=== PATIENT | female | born 1955 | race Caucasian/White ===

== ENCOUNTER → 2018-03-02 | Outpatient (CLI) | payer BC | LOC: M WHC 13:05 | DX: Z12.31 Encounter for screening mammogram for malignant neoplasm of breast (principal) | CPT/HCPCS: 77067 ==

== ENCOUNTER → 2018-11-28 | Outpatient (REF) | payer BC | LOC: M LAB LCGH 13:06 | PROVIDERS: ATTEND Physician Assistant | DX: D48.5 Neoplasm of uncertain behavior of skin (principal) ==

== ENCOUNTER → 2019-04-10 | Outpatient (CLI) | payer BC ==
--- NOTE | 2019-04-10 11:42 | REPMRS ---
Patient History The patient states she has not had a clinical breast exam in over a year. Patient is postmenopausal. No known family history of cancer. No Hormone Replacement Therapy 3D TOMOSYNTHESIS WAS PERFORMED. [facility] lifetime risk for breast cancer is 6.8%. Digital Woman Screen Mammo: April 10, 2019 - Exam #: [id number] Bilateral CC and MLO view(s) were taken. Technologist: Nathalie Bhat, Technologist Prior study comparison: March 02, 2018, bilateral digital woman screen mammo performed at [facility], [place]. March 01, 2017, digital woman screen mammo performed at [facility]. FINDINGS: The breast tissue is heterogeneously dense. This may lower the sensitivity of mammography. There has been no change in the appearance of the mammogram from the prior studies. There is a moderate amount of residual fibroglandular tissue which is fairly symmetric. There is no interval development of dominant mass, areas of architectural distortion, or clustered microcalcification typical of malignancy. Assessment: BI-RADS/ACR category 1 mammogram. Negative Mammogram. Recommendation Routine screening mammogram in 1 year (for women over age 40). This mammogram was interpreted with the aid of an FDA-approved computer-aided dectection system. Electronically Signed By: Srinivas Hernandez MD 04/10/19 [id number]
== END ==
LOC: M WHC 10:09
PROVIDERS: ATTEND Nurse Practitioner Women's Health
DX: Z12.31 Encounter for screening mammogram for malignant neoplasm of breast (principal)

== ENCOUNTER → 2020-04-14 | Outpatient (CLI) | payer BC ==
--- NOTE | 2020-04-14 14:09 | REPMRS ---
Patient History The patient states she had a clinical breast exam in 04/19. No known family history of cancer. No Hormone Replacement Therapy Digital Woman Screen Mammo: April 14, 2020 - Exam #: [id number] Bilateral CC and MLO view(s) were taken. Technologist: Jennifer Guerra, Technologist Prior study comparison: April 10, 2019, bilateral digital woman screen mammo performed at [facility]. March 02, 2018, bilateral digital woman screen mammo performed at [facility]. March 01, 2017, digital woman screen mammo performed at [facility]. FINDINGS: There are scattered fibroglandular densities. The Volpara volumetric breast density category is:B. There has been no change in the appearance of the mammogram from the prior studies. There is a mild amount of scattered fibroglandular density which is fairly symmetric. There is no interval development of dominant mass, architectural distortion, or grouped microcalcification suggestive of malignancy. 3-D tomosynthesis shows no additional findings. Assessment: BI-RADS/ACR category 1 mammogram. Negative Mammogram. Recommendation Routine screening mammogram of both breasts in 1 year (for women over age 40). This patient's [facility] Lifetime Breast Cancer Risk is estimated at 6.5 %. This mammogram was interpreted with the aid of an FDA-approved computer-aided dectection system. Electronically Signed By: Aniceto Koehler MD 04/14/20 0543
== END ==
LOC: M WHC 13:04
PROVIDERS: ATTEND Nurse Practitioner Women's Health
DX: Z12.31 Encounter for screening mammogram for malignant neoplasm of breast (principal)

== ENCOUNTER → 2020-04-14 | Outpatient (REF) | payer BC | LOC: M SFHCWAGY 17:02 | PROVIDERS: ATTEND Nurse Practitioner Women's Health | DX: Z12.4 Encounter for screening for malignant neoplasm of cervix (principal) ==

== ENCOUNTER → 2020-11-06 | Outpatient (CLI) | payer MEDICARE, BC | LOC: M WHC 10:43 | PROVIDERS: ATTEND Nurse Practitioner Women's Health | DX: R10.2 Pelvic and perineal pain (principal) ==

== ENCOUNTER → 2022-04-06 | Outpatient (CLI) | payer MEDICARE, BC | LOC: M WHC 14:31 | PROVIDERS: ATTEND Advanced Practice Midwife | DX: Z12.31 Encounter for screening mammogram for malignant neoplasm of breast (principal); Z78.0 Asymptomatic menopausal state; Z13.820 Encounter for screening for osteoporosis ==

== ENCOUNTER → 2023-04-12 | Outpatient (CLI) | payer MEDICARE, BC | LOC: M WHC 13:45 | PROVIDERS: ATTEND Advanced Practice Midwife | DX: Z12.31 Encounter for screening mammogram for malignant neoplasm of breast (principal) ==

== ENCOUNTER → 2024-04-15 | Outpatient (CLI) | payer MEDICARE, BC | LOC: M WHC 11:09 | PROVIDERS: ATTEND Advanced Practice Midwife | DX: Z13.820 Encounter for screening for osteoporosis (principal); Z12.31 Encounter for screening mammogram for malignant neoplasm of breast; R92.323 Mammographic fibroglandular density, bilateral breasts; Z78.0 Asymptomatic menopausal state ==

== ENCOUNTER → 2024-04-15 | Outpatient (CLI) | payer MEDICARE, BC | LOC: M WHC 11:06 | PROVIDERS: ATTEND Advanced Practice Midwife | DX: Z12.31 Encounter for screening mammogram for malignant neoplasm of breast (principal); R92.323 Mammographic fibroglandular density, bilateral breasts ==

== ENCOUNTER → 2025-03-24 | Outpatient (CLI) | payer MEDICARE, BC ==
[2025-03-24 12:57] LABS: PLATELET COUNT, AUTOMATED 203 10^3/uL (150-450)
[2025-03-24 13:00] LABS: ALT/SGPT 26 U/L (7.0-40); AST/SGOT 27 U/L (<34); CALCIUM LEVEL 8.6 MG/DL (8.3-10.6); CARBON DIOXIDE LEVEL 26 MMOL/L (20-31); CHLORIDE LEVEL 103 MMOL/L (98-107); CHOLESTEROL LEVEL 155 MG/DL (<200); CHOLESTEROL RISK RATIO 3.27 (<5); CREATININE FOR GFR 0.66 MG/DL (0.55-1.30); GLOMERULAR FILTRATION RATE > 90.0 (>45); LDL CHOLESTEROL 69.9 MG/DL (<100); NON-HDL-C 107.7 MG/DL; POTASSIUM SERUM 3.9 MMOL/L (3.5-5.1); SODIUM LEVEL 139 MMOL/L (136-145); TRIGLYCERIDES LEVEL 189 MG/DL (<150)
== END ==
LOC: M WUC 09:44
PROVIDERS: ATTEND Family Medicine
DX: R05.3 Chronic cough (principal); E78.5 Hyperlipidemia, unspecified; E03.9 Hypothyroidism, unspecified